=== PATIENT | male | born 1980 | race African-American/Black ===

== ENCOUNTER 2022-09-24 13:30 | Emergency (ER) | payer SELFPAY ==
[~2022-09-24] VITALS: Ht 185.4 cm; Wt 90.7 kg
[2022-09-24] MEDS ORDERED: LIDOCAINE HCL 2% LOCAL 20 ML VIAL INJ STA (14:02)
[2022-09-24] MEDS ORDERED: ACETAMINOPHEN500 MG PO (14:05)
[2022-09-24] MEDS ORDERED: DOXYCYCLINE HY100 MG PO (14:05)
[2022-09-24] MEDS ORDERED: IBUPROFEN200 MG PO (14:05)
[2022-09-24] MEDS ORDERED: LIDOCAINE HCL 2% LOCAL 20 ML VIAL ONE (14:13)
== END 2022-09-24 15:05 | disposition home or self-care (01) ==
LOC: FSED 13:55
DX: L03.012 Cellulitis of left finger (principal)
CPT/HCPCS: 10061; 99283; J2001